=== PATIENT | female | born 1995 | race Caucasian/White ===

== ENCOUNTER 2018-10-31 17:03 | Emergency (ER) | payer OTHER ==
[2018-10-31 17:36] LABS: BASOPHILS # (AUTO) 0.1 10^3/uL (0.0-0.1); BASOPHILS % (AUTO) 0.6 %; EOSINOPHILS # (AUTO) 0.3 10^3/uL (0.0-0.7); EOSINOPHILS % (AUTO) 3.5 %; HGB - HEMOGLOBIN 13.6 g/dL (12.0-16.0); LYMPHOCYTES % (AUTO) 35.5 %; MEAN CORPUSCULAR VOLUME 91.3 fL (81.0-99.0); MEAN PLATELET VOLUME 6.8 fL (7.9-10.8); MONOCYTES # (AUTO) 0.5 10^3/uL (0.0-1.0); NEUTROPHILS # (AUTO) 4.6 10^3/uL (1.5-6.6); NEUTROPHILS % (AUTO) 54.4 %; PLT - PLATELET COUNT 326 10^3/uL (130-450); RED BLOOD COUNT 4.38 10^6/uL (4.20-5.40); RED CELL DISTRIBUTION WIDTH 12.4 % (12.0-15.0); WHITE BLOOD COUNT 8.5 x10^3/uL (4.8-10.8)
[2018-10-31 17:49] LABS: ALBUMIN/GLOBULIN RATIO 1.2 (1.0-2.2); BILIRUBIN,TOTAL 0.6 mg/dL (0.2-1.0); CREATININE 0.7 mg/dL (0.4-1.0); TOTAL PROTEIN 7.3 g/dL (6.7-8.2)
[2018-10-31 17:58] LABS: CALCIUM 8.9 mg/dL (8.5-10.3)
[2018-10-31 18:05] LABS: HCG UR QUAL NEGATIVE
[2018-10-31 20:49] LABS: BILIRUBIN,URINE NEGATIVE (NEGATIVE); GLUCOSE, URINE (UA) NEGATIVE (NEGATIVE); KETONES,URINE (UA) NEGATIVE (NEGATIVE); LEUKOCYTE ESTERASE, URINE NEGATIVE (NEGATIVE); NITRITE,URINE NEGATIVE (NEGATIVE); OCCULT BLOOD,URINE MODERATE (NEGATIVE); PROTEIN,URINE NEGATIVE (NEGATIVE); UROBILINOGEN,URINE 0.2 (NORMAL) E.U./dL (NORMAL)
[2018-10-31 20:51] LABS: CLARITY,URINE CLEAR (CLEAR)
--- NOTE | 2018-10-31 21:07 | ED Physician Documentation ---
PD HPI SYNCOPE - Stated complaint Stated Complaint: SYNCOPAL EPISODE - Chief complaint Chief Complaint: General - History obtained from History obtained from: Patient - History of Present Illness Witnessed: Witnessed Timing - onset: Today (tonight) Preceding symptoms: Vision changes, Diaphoresis, Nausea / vomiting Associated symptoms: Seizure (patient says her friend noted patient had "convulsions" (friend is not in room at the time of my evaluation of patient).). No: Incontinant of urine, Incontinant of stool, Headache Contributing factors: None Injury occurred: None Pain level max: 0 Pain level now: 0 Similar symptoms before: Other (one previous similar episode) Recently seen: Not recently seen - Additional information Additional information: patient was at friend's house this evening and was walking dog with her friend when patient experienced sudden onset of nausea, rapidly followed by feeling flushed (describes as "hot flash and cold sweats"), then "tunnel vision" (per patient). She then had LOC with "convulsions" (patient says her friend told her this). Patient is asymptomatic at this time. Had one similar previous episode. Review of Systems Constitutional: reports: Sweats ("cold sweats" immediately preceding episode, resolved) Eyes: reports: Other ("tunnel vision" immediately preceding the episode, resolved) Cardiac: reports: Reviewed and negative Respiratory: reports: Reviewed and negative GI: reports: Nausea (resolved). denies: Abdominal Pain, Vomiting : reports: LMP (currently menstruating). denies: Now EGA Skin: reports: Reviewed and negative Musculoskeletal: reports: Reviewed and negative Neurologic: reports: Syncope. denies: Generalized weakness, Focal weakness, Numbness, Confused, Altered mental status, Headache, Head injury PD PAST MEDICAL HISTORY - Past Medical History Past Medical History: No - Past Surgical History Past Surgical History: No - Allergies Allergies/Adverse Reactions: Allergies Allergy/AdvReac Type Severity Reaction Status Date / Time No Known Drug Allergies Allergy Verified 10/31/18 17:23 - Living Situation Living Arrangement: reports: At home - Social History Does the pt smoke?: No PD ED PE NORMAL - Vitals Vital signs reviewed: Yes - General General: Alert and oriented X 3, No acute distress, Well developed/nourished - HEENT HEENT: Moist mucous membranes, Other (no tongue bite) - Cardiac Cardiac: RRR, No murmur, No gallop, No rub - Respiratory Respiratory: No respiratory distress, Clear bilaterally - Abdomen Abdomen: Soft, Non tender - Derm Derm: Normal color, Warm and dry - Neuro Neuro: Alert and oriented X 3, loader demolder 2-12 intact, No motor deficit, No sensory deficit, Normal speech Eye Opening: Spontaneous Motor: Obeys Commands Verbal: Oriented GCS Score: 15 Results - Vitals Vitals: Vital Signs - 24 hr 10/31/18 10/31/18 10/31/18 17:18 19:46 20:43 Temperature 36.8 C 36.4 C L 36.8 C Heart Rate 112 H 76 96 Respiratory 14 16 17 Rate Blood Pressure 145/97 H 116/76 128/75 O2 Saturation 99 98 98 10/31/18 21:32 Temperature Heart Rate 76 Respiratory 14 Rate Blood Pressure 124/70 O2 Saturation 98 Oxygen O2 Source Room air - Labs Labs: Laboratory Tests 10/31/18 10/31/18 10/31/18 17:30 17:30 17:47 WBC 8.5 RBC 4.38 Hgb 13.6 Hct 40.0 MCV 91.3 MCH 31.0 MCHC 34.0 RDW 12.4 Plt Count 326 MPV 6.8 L Neut # (Auto) 4.6 Lymph # (Auto) 3.0 Rice # (Auto) 0.5 Eos # (Auto) 0.3 Baso # (Auto) 0.1 Absolute Nucleated RBC 0.01 Nucleated RBC % 0.1 Sodium 138 Potassium 3.9 Chloride 104 Carbon Dioxide 24 Anion Gap 10.0 BUN 11 Creatinine 0.7 Estimated GFR (MDRD) 104 Glucose 132 H POC Whole Bld Glucose Calcium 8.9 Total Bilirubin 0.6 AST 20 ALT 18 Alkaline Phosphatase 55 Total Protein 7.3 Albumin 4.0 Globulin 3.3 Albumin/Globulin Ratio 1.2 Lipase 27 Urine Color Urine Clarity Urine pH Ur Specific [place] 1.015 Urine Protein Urine Glucose (UA) Urine Ketones Urine Occult Blood Urine Nitrite Urine Bilirubin Urine Urobilinogen Ur Leukocyte Esterase Urine RBC Urine WBC Ur Squamous Epith Cells Urine Bacteria Urine Culture Comments Urine HCG, Qual NEGATIVE 10/31/18 10/31/18 17:47 20:47 WBC RBC Hgb Hct MCV MCH MCHC RDW Plt Count MPV Neut # (Auto) Lymph # (Auto) Rice # (Auto) Eos # (Auto) Baso # (Auto) Absolute Nucleated RBC Nucleated RBC % Sodium Potassium Chloride Carbon Dioxide Anion Gap BUN Creatinine Estimated GFR (MDRD) Glucose POC Whole Bld Glucose 139 H Calcium Total Bilirubin AST ALT Alkaline Phosphatase Total Protein Albumin Globulin Albumin/Globulin Ratio Lipase Urine Color YELLOW Urine Clarity CLEAR Urine pH 7.0 Ur Specific [place] 1.015 Urine Protein NEGATIVE Urine Glucose (UA) NEGATIVE Urine Ketones NEGATIVE Urine Occult Blood MODERATE H Urine Nitrite NEGATIVE Urine Bilirubin NEGATIVE Urine Urobilinogen 0.2 (NORMAL) Ur Leukocyte Esterase NEGATIVE Urine RBC 6-10 H Urine WBC 0-3 Ur Squamous Epith Cells FEW Squamous Urine Bacteria Many H Urine Culture Comments INDICATED Urine HCG, Qual PD MEDICAL DECISION MAKING - ED course Complexity details: reviewed results, re-evaluated patient, considered differential, d/w patient ED course: suspect vasovagal syncope, as she describes brief but typical prodromal symptoms. reassuring blood tests and UA. Mild tachycardia noted, which patient says is not new for her Departure - Departure Disposition: 01 Home, Self Care Clinical Impression: Syncope Condition: Good Instructions: ED Dizziness Syncope Fainting W Pre Follow-Up: COLLIN YI MD [Primary Care Provider] - (Call in the morning to arrange for immediate follow-up. )
[2018-10-31 21:11] LABS: BACTERIA,URINE Many /HPF (None Seen); SQUAMOUS EPITHELIAL CELL,UR FEW Squamous (<= Few)
[2018-10-31 21:32] VITALS: BP 124/70
== END 2018-10-31 21:32 | disposition home or self-care (01) ==
LOC: ED 17:03
DX: R55 Syncope and collapse (principal)
CPT/HCPCS: 36415; 80053; 81001; 81025; 83690; 85025; 87086; 93005; 99283

== ENCOUNTER 2019-01-01 08:56 | Outpatient (CLI) | payer OTHER | END 2019-01-01 08:57 | disposition critical access hospital (66) | LOC: EMS 08:56 | PROVIDERS: ATTEND Surgery | DX: R06.00 Dyspnea, unspecified (principal); F41.9 Anxiety disorder, unspecified | CPT/HCPCS: A0425; A0429 ==

== ENCOUNTER 2019-01-01 09:13 | Emergency (ER) | payer OTHER ==
[2019-01-01] MEDS ORDERED: LORazepam 2 MG/ML VIAL IM STA (09:19)
--- NOTE | 2019-01-01 13:09 | ED Physician Documentation ---
PD HPI MHE - Stated complaint Stated Complaint: PANIC ATTACK - Chief complaint Chief Complaint: MHE - History obtained from History obtained from: Patient, EMS - History of Present Illness Primary symptom: Anxiety Timing - onset: Today Contributing factors: Other (PTSD) Similar symptoms before: Diagnosis (panic attack) Recently seen: Clinic - Additional information Additional information: 23-year-old female with a history of anxiety and posttraumatic stress disorder has developed a panic attack today and comes to the emergency department with carpopedal spasm and shortness of breath. Review of Systems Constitutional: denies: Fever, Chills Eyes: denies: Decreased vision Ears: denies: Ear pain Nose: denies: Congestion Throat: denies: Sore throat Cardiac: denies: Chest pain / pressure, Palpitations Respiratory: denies: Dyspnea, Cough GI: denies: Abdominal Pain, Nausea, Vomiting : denies: Dysuria, Frequency Skin: denies: Rash, Lesions, Laceration (s) Musculoskeletal: denies: Neck pain, Back pain, Extremity pain Neurologic: denies: Generalized weakness, Focal weakness, Numbness, Difficulty speaking Psychiatric: reports: Anxiety. denies: Suicidal, Homicidal PD PAST MEDICAL HISTORY - Past Medical History Psych: Anxiety, Panic attacks - Past Surgical History Past Surgical History: No HEENT: Tonsil/Adenoidectomy - Present Medications Home Medications: Ambulatory Orders Medication Instructions Recorded Confirmed Lorazepam [Ativan] 1 mg PO Q6HR #12 tablet 01/01/19 - Allergies Allergies/Adverse Reactions: Allergies Allergy/AdvReac Type Severity Reaction Status Date / Time No Known Drug Allergies Allergy Verified 01/01/19 09:23 - Social History Does the pt smoke?: No Smoking Status: Never smoker Does the pt drink ETOH?: Yes Does the pt have substance abuse?: No PD ED PE NORMAL - Vitals Vital signs reviewed: Yes (tachy and hypertensive and tachypneic ) - General General: Other (23 y/o female with carpopedal spasm and tachypnea appears uncomfortable with a panic attack. ) - HEENT HEENT: Atraumatic, PERRL, EOMI - Neck Neck: Supple, no meningeal sign, No bony TTP - Cardiac Cardiac: No murmur, Other (tachy to 110) - Respiratory Respiratory: Clear bilaterally, Other (tachypneic at rest with clear sounds. ) - Abdomen Abdomen: Soft, Non tender - Back Back: No CVA TTP, No spinal TTP - Derm Derm: Normal color, Warm and dry, No rash - Extremities Extremities: Other (The hands are held fisted with carpal spasm and the feet are extended plantar. ) - Neuro Neuro: bill cutter 2-12 intact, No motor deficit, No sensory deficit, Normal speech Eye Opening: Spontaneous Motor: Obeys Commands Verbal: Oriented GCS Score: 15 - Psych Psych: Other (mood is anxious affect is flat ) Results - Vitals Vitals: Vital Signs - 24 hr 01/01/19 01/01/19 01/01/19 09:16 09:32 10:32 Temperature 36.8 C Heart Rate 129 H 116 H 100 Respiratory 36 H 19 16 Rate Blood Pressure 138/123 H 131/86 H 108/71 O2 Saturation 100 100 100 01/01/19 01/01/19 01/01/19 13:46 14:17 14:21 Temperature 36.5 C Heart Rate 108 H 108 H Respiratory 18 Rate Blood Pressure 115/65 118/65 O2 Saturation 98 98 01/01/19 14:25 Temperature 36.8 C Heart Rate 108 H Respiratory 20 Rate Blood Pressure 118/62 O2 Saturation 100 Oxygen O2 Source Room air PD MEDICAL DECISION MAKING - ED course Complexity details: reviewed old records, reviewed results, re-evaluated patient, considered differential, d/w patient ED course: 23 y/o female with PTSD has come to the emergency department with carpopedal spasm having a full-blown panic attack. She is administered Ativan 2 mg IM with marked improvement and at the conclusion of treatment she is able to speak easily and feels much improved. Departure - Departure Disposition: 01 Home, Self Care Clinical Impression: Panic attack Condition: Stable Instructions: ED Stress React, ED Panic Attack Follow-Up: [facility] [Provider Group] Prescriptions: Lorazepam [Ativan] 1 mg PO Q6HR #12 tablet Discharge Date/Time: 01/01/19 14:25
[2019-01-01 14:27] VITALS: BP 118/62
== END 2019-01-01 14:25 | disposition home or self-care (01) ==
LOC: EDUNIT# → ED 09:13
DX: F41.0 Panic disorder [episodic paroxysmal anxiety] (principal); F43.10 Post-traumatic stress disorder, unspecified
CPT/HCPCS: 99283; J2060

== ENCOUNTER 2019-11-07 11:45 | Emergency (ER) | payer OTHER ==
--- NOTE | 2019-11-07 12:01 | ED Physician Documentation ---
PD HPI NVD - Stated complaint Stated Complaint: VOMITING - Chief complaint Chief Complaint: Abd Pain - History obtained from History obtained from: Patient - History of Present Illness Timing - onset: How many days ago (4) Timing - duration: Days (4) Timing - details: Abrupt onset (She is started with nausea and vomiting and intermittent associated upper abdominal pain prior to and with the vomiting but not consistent. No lower abdominal pain and no diarrhea. She states she had a normal bowel movement 2 days ago. She did not have any upper respiratory type symptoms. Onset of the nausea and vomiting was abrupt and continued overnight. It lasted the following day and she thought she was improving some but then try to eat a cheeseburger and got nauseous and vomiting again yesterday. She has been unable to eat anything since yesterday and only tolerate sips of fluid. She denies prior abdominal surgery. She denies prior similar episodes.), Still present Associated symptoms: Abdominal pain (upper), Loss of appetite. No: Fever, Chest pain, Hematemesis, Weight loss Contributing factors: No: Sick contact, Bad food, Travel, Recent antibiotics Improved by: No: Vomiting Worsened by: Eating Similar symptoms before: Has not had sx before Recently seen: Not recently seen Review of Systems Constitutional: reports: Fatigue. denies: Fever, Chills, Myalgias Nose: denies: Rhinorrhea / runny nose, Congestion Throat: denies: Sore throat Respiratory: denies: Cough GI: reports: Abdominal Pain, Nausea, Vomiting. denies: Abdominal Swelling, Constipation, Diarrhea, Hematemesis, Bloody / black stool : denies: Dysuria, Frequency Skin: denies: Rash Neurologic: reports: Generalized weakness. denies: Focal weakness, Numbness, Near syncope PD PAST MEDICAL HISTORY - Past Medical History Past Medical History: No Psych: Anxiety, Panic attacks - Past Surgical History Past Surgical History: No HEENT: Tonsil/Adenoidectomy - Present Medications Home Medications: Ambulatory Orders Medication Instructions Recorded Confirmed Lorazepam [Ativan] 1 mg PO Q6HR #12 tablet 01/01/19 Famotidine 20 mg PO DAILY #30 tablet 11/07/19 Ondansetron Odt [Zofran] 4 mg TL Q6H PRN #10 tablet 11/07/19 - Allergies Allergies/Adverse Reactions: Allergies Allergy/AdvReac Type Severity Reaction Status Date / Time No Known Drug Allergies Allergy Verified 01/01/19 09:23 - Social History Does the pt smoke?: No Smoking Status: Never smoker Does the pt drink ETOH?: Yes Does the pt have substance abuse?: No PD ED PE NORMAL - Vitals Vital signs reviewed: Yes - General General: Alert and oriented X 3, Well developed/nourished - HEENT HEENT: Moist mucous membranes, Pharynx benign - Neck Neck: Supple, no meningeal sign, No adenopathy - Cardiac Cardiac: RRR, No murmur - Respiratory Respiratory: Clear bilaterally - Abdomen Abdomen: Normal bowel sounds, Soft, Non distended, No organomegaly, Other (Tender in the epigastric area and slightly in the right upper quadrant with some localized guarding. There is no percussion or rebound tenderness. The lower abdomen is nontender. No CVA tenderness.) - Female Female : Deferred - Rectal Rectal: Deferred - Back Back: No CVA TTP - Derm Derm: Normal color, Warm and dry - Neuro Neuro: Alert and oriented X 3, No motor deficit, Normal speech Results - Vitals Vitals: Vital Signs - 24 hr 11/07/19 11/07/19 11:49 14:21 Temperature 36.7 C 37.1 C Heart Rate 96 106 H Respiratory 16 16 Rate Blood Pressure 118/78 121/78 O2 Saturation 99 100 Oxygen O2 Source Room air - Labs Labs: Laboratory Tests 11/07/19 11/07/19 11/07/19 12:00 12:00 14:05 WBC 7.6 RBC 4.33 Hgb 13.6 Hct 39.8 MCV 91.9 MCH 31.4 H MCHC 34.2 RDW 11.7 L Plt Count 298 MPV 8.7 Neut # (Auto) 5.7 Lymph # (Auto) 1.4 L [place] # (Auto) 0.4 Eos # (Auto) 0.1 Baso # (Auto) 0.0 Absolute Nucleated RBC 0.00 Nucleated RBC % 0.0 Sodium 140 Potassium 3.6 Chloride 106 Carbon Dioxide 24 Anion Gap 10.0 BUN 12 Creatinine 0.6 Estimated GFR (MDRD) 123 Glucose 104 H Calcium 8.8 Total Bilirubin 1.0 AST 17 ALT 18 Alkaline Phosphatase 51 Total Protein 7.5 Albumin 4.5 Globulin 3.0 Albumin/Globulin Ratio 1.5 Lipase 25 Urine Color DARK YELLOW Urine Clarity CLEAR Urine pH 6.0 Ur Specific [place] >=1.030 H Urine Protein NEGATIVE Urine Glucose (UA) NEGATIVE Urine Ketones >=80 H Urine Occult Blood TRACE-INTA Urine Nitrite NEGATIVE Urine Bilirubin NEGATIVE Urine Urobilinogen 0.2 (NORMAL) Ur Leukocyte Esterase NEGATIVE Ur Microscopic Review NOT INDICATED Urine Culture Comments NOT INDICATED Urine HCG, Qual 11/07/19 14:14 WBC RBC Hgb Hct MCV MCH MCHC RDW Plt Count MPV Neut # (Auto) Lymph # (Auto) [place] # (Auto) Eos # (Auto) Baso # (Auto) Absolute Nucleated RBC Nucleated RBC % Sodium Potassium Chloride Carbon Dioxide Anion Gap BUN Creatinine Estimated GFR (MDRD) Glucose Calcium Total Bilirubin AST ALT Alkaline Phosphatase Total Protein Albumin Globulin Albumin/Globulin Ratio Lipase Urine Color Urine Clarity Urine pH Ur Specific [place] >=1.030 H Urine Protein Urine Glucose (UA) Urine Ketones Urine Occult Blood Urine Nitrite Urine Bilirubin Urine Urobilinogen Ur Leukocyte Esterase Ur Microscopic Review Urine Culture Comments Urine HCG, Qual NEGATIVE - Rads (name of study) RUQ abd U/S Radiology: Prelim report reviewed (Gallbladder is normal. Bile duct is normal. The pancreas is mostly visible and normal but obscured slightly by bowel gas.), See rad report PD MEDICAL DECISION MAKING - ED course Complexity details: reviewed results, re-evaluated patient (Labs are normal. Ultrasound does not show any gallbladder abnormalities. She is feeling improved with IV fluids and antiemetics. She was given some water to drink and felt okay. Some crackers however did cause some mild nausea but no vomiting. She does feel improved enough to want to go home and states she will start off eating small bland amounts.), considered differential (Unclear the initial trigger with there was food intolerance or mild infectious process. However she has had persistent nausea and vomiting with attempted oral intake for 4 days. No diarrhea associated. She is tender in the upper abdomen so can check labs as well as ultrasound of the gallbladder to ensure no other process aside from mild gastritis.), d/w patient Departure - Departure Disposition: 01 Home, Self Care Clinical Impression: Upper abdominal pain Nausea and vomiting Qualifiers: Vomiting type: unspecified Vomiting Intractability: non-intractable Qualified Code(s): R11.2 - Nausea with vomiting, unspecified Acute gastritis Qualifiers: Gastritis type: unspecified gastritis Gastritis bleeding: without bleeding Qualified Code(s): K29.00 - Acute gastritis without bleeding Condition: Stable Record reviewed to determine appropriate education?: Yes Instructions: ED Gastritis, ED Nausea Vomiting Follow-Up: ALANA RAMACHANDRAN ARNP [Primary Care Provider] - Prescriptions: Famotidine 20 mg PO DAILY #30 tablet Ondansetron Odt [Zofran] 4 mg TL Q6H PRN #10 tablet PRN Reason: Nausea / Vomiting Comments: Small frequent fluids. [place] food initially and progress diet as able over the next day or 2. Expect some spicy or large amount of food intolerance over the next few days so eat small and gently. Ondansetron if needed for nausea. Your stomach would have gotten irritated from the illness so take famotidine acid reducing medicine twice daily for 4 to 5 days and then once daily for another week or 2. Recheck if not improved well over the next couple of days return sooner if worsening. Your prescriptions were transmitted to [facility] in [place]. Forms: Activity restrictions Discharge Date/Time: 11/07/19 14:35
[2019-11-07 12:05] LABS: BASOPHILS % (AUTO) 0.5 %; EOSINOPHILS # (AUTO) 0.1 10^3/uL (0.0-0.7); EOSINOPHILS % (AUTO) 0.9 %; HGB - HEMOGLOBIN 13.6 g/dL (12.0-16.0); LYMPHOCYTES # (AUTO) 1.4 10^3/uL (1.5-3.5); LYMPHOCYTES % (AUTO) 18.6 %; MEAN CORPUSCULAR HEMOGLOBIN 31.4 pg (27.0-31.0); MEAN CORPUSCULAR HGB CONC 34.2 g/dL (32.0-36.0); MEAN CORPUSCULAR VOLUME 91.9 fL (81.0-99.0); MEAN PLATELET VOLUME 8.7 fL (7.9-10.8); MONOCYTES # (AUTO) 0.4 10^3/uL (0.0-1.0); MONOCYTES % (AUTO) 5.6 %; NEUTROPHILS # (AUTO) 5.7 10^3/uL (1.5-6.6); NEUTROPHILS % (AUTO) 74.3 %; PLT - PLATELET COUNT 298 10^3/uL (130-450); RED BLOOD COUNT 4.33 10^6/uL (4.20-5.40); RED CELL DISTRIBUTION WIDTH 11.7 % (12.0-15.0); WHITE BLOOD COUNT 7.6 x10^3/uL (4.8-10.8)
[2019-11-07] MEDS ORDERED: FAMOTIDINE 20 MG/2 ML SYRINGE IVP STA (12:17)
[2019-11-07] MEDS ORDERED: ONDANSETRON 4 MG/2 ML VIAL IVP STA ×2 (12:17→14:20)
[2019-11-07] MEDS ORDERED: SODIUM CHLORIDE 0.9% 1,000 ML IV STA ×2 (12:17)
[2019-11-07 12:22] LABS: ALBUMIN 4.5 g/dL (3.2-5.5); ALBUMIN/GLOBULIN RATIO 1.5 (1.0-2.2); CALCIUM 8.8 mg/dL (8.5-10.3); CREATININE 0.6 mg/dL (0.4-1.0); TOTAL PROTEIN 7.5 g/dL (6.7-8.2)
--- NOTE | 2019-11-07 13:51 | Ultrasound Report ---
PROCEDURE: Abdomen Limited INDICATIONS: upper abd pain/vomiting x 3 days TECHNIQUE: Real-time focused scanning was performed of the right upper quadrant, with image documentation. COMPARISON: None. FINDINGS: The liver appears normal in size with no discrete mass lesion. The gallbladder demonstrates no gallstones, wall thickening, or pericholecystic fluid. No intra or extrahepatic biliary ductal dilatation. The common bile duct measures up to approximately 3 mm. The pancreas was not well seen due to bowel gas. Right kidney measures up to 11.3 cm. No hydronephrosis. IMPRESSION: 1. No evidence of cholelithiasis or cholecystitis. Reviewed by: Mando Maher MD on 11/07/2019 1:50 PM PDT Approved by: Mando Maher MD on 11/07/2019 1:50 PM PDT Station ID: [id number]
[2019-11-07 14:22] VITALS: BP 121/78
[2019-11-07 14:24] LABS: BILIRUBIN,URINE NEGATIVE (NEGATIVE); GLUCOSE, URINE (UA) NEGATIVE (NEGATIVE); KETONES,URINE (UA) >=80 mg/dL (NEGATIVE); LEUKOCYTE ESTERASE, URINE NEGATIVE (NEGATIVE); NITRITE,URINE NEGATIVE (NEGATIVE); OCCULT BLOOD,URINE TRACE-INTA (NEGATIVE); PROTEIN,URINE NEGATIVE (NEGATIVE); UROBILINOGEN,URINE 0.2 (NORMAL) E.U./dL (NORMAL)
[2019-11-07 14:26] LABS: CLARITY,URINE CLEAR (CLEAR)
[2019-11-07 14:32] LABS: HCG UR QUAL NEGATIVE
== END 2019-11-07 14:35 | disposition home or self-care (01) ==
LOC: ED 11:45
DX: K29.00 Acute gastritis without bleeding (principal)
CPT/HCPCS: 36415; 76705; 80053; 81001; 81003; 81025; 83690; 85025; 87086; 96361; 96374; 96375; 99284